=== PATIENT | female | born 1975 ===

== ENCOUNTER 2019-01-01 11:00 | Outpatient (CLI) | payer OTHER ==
[~2019-01-01] VITALS: Ht 154.9 cm; Wt 63.5 kg
[2019-01-01] MEDS ORDERED: MEDROL4 MG PO (12:28)
== END 2019-01-01 11:15 | disposition home or self-care (01) ==
LOC: OFIC 805 11:00
DX: J31.0 Chronic rhinitis (principal); J34.2 Deviated nasal septum; C73 Malignant neoplasm of thyroid gland; R49.8 Other voice and resonance disorders; J38.3 Other diseases of vocal cords; J38.00 Paralysis of vocal cords and larynx, unspecified

== ENCOUNTER 2019-01-07 10:23 | Outpatient (CLI) | payer OTHER ==
[~2019-01-07 10:23] MED LIST: MEDROL4 MG PO
== END 2019-01-07 13:33 | disposition home or self-care (01) ==
LOC: LAB 10:23
DX: E89.0 Postprocedural hypothyroidism (principal)

== ENCOUNTER 2019-01-15 09:31 | Outpatient (CLI) | payer OTHER ==
[~2019-01-15] VITALS: Ht 152.4 cm; Wt 63.5 kg
== END 2019-01-15 09:45 | disposition home or self-care (01) ==
LOC: OFIC 805 09:31
DX: J31.0 Chronic rhinitis (principal); J34.2 Deviated nasal septum; C73 Malignant neoplasm of thyroid gland; R49.8 Other voice and resonance disorders; J38.00 Paralysis of vocal cords and larynx, unspecified; G83.89 Other specified paralytic syndromes

== ENCOUNTER 2019-01-29 13:33 | Outpatient (CLI) | payer OTHER | END 2019-01-29 13:41 | disposition home or self-care (01) | LOC: LAB 13:33 | DX: J44.1 Chronic obstructive pulmonary disease with (acute) exacerbation (principal); J38.00 Paralysis of vocal cords and larynx, unspecified ==

== ENCOUNTER → 2019-02-04 09:15 | Outpatient (CLI) | payer OTHER | END | disposition home or self-care (01) | LOC: LAB 09:15 | DX: C73 Malignant neoplasm of thyroid gland (principal); Z32.00 Encounter for pregnancy test, result unknown ==

== ENCOUNTER 2019-02-12 09:57 | Outpatient (CLI) | payer OTHER ==
[~2019-02-12] VITALS: Ht 152.4 cm; Wt 63.5 kg
== END 2019-02-12 16:02 | disposition home or self-care (01) ==
LOC: OFIC 805 09:57
DX: J31.0 Chronic rhinitis (principal); J34.2 Deviated nasal septum; C73 Malignant neoplasm of thyroid gland; R49.9 Unspecified voice and resonance disorder; J38.3 Other diseases of vocal cords; J38.00 Paralysis of vocal cords and larynx, unspecified

== ENCOUNTER → 2019-05-14 | Outpatient (CLI) | payer OTHER ==
[~2019-05-14] VITALS: Ht 152.4 cm; Wt 62.6 kg
[~2019-05-14] MED LIST changes: +FLONASE16 GM NASAL; +ZYRTEC10 MG PO
== END | disposition home or self-care (01) ==
LOC: OFIC 805 07:04
DX: J31.0 Chronic rhinitis (principal); J34.2 Deviated nasal septum; C73 Malignant neoplasm of thyroid gland; R49.1 Aphonia; J38.02 Paralysis of vocal cords and larynx, bilateral

== ENCOUNTER 2019-06-13 02:23 | Emergency (ER) | payer OTHER ==
[~2019-06-13] VITALS: Ht 154.9 cm; Wt 59.4 kg
[2019-06-13] MEDS ORDERED: ROCALTROL0.25 MCG (02:37)
[2019-06-13] MEDS ORDERED: SYNTHROID112 MCG (02:38)
== END 2019-06-13 12:11 | disposition home or self-care (01) ==
LOC: ER 02:23
DX: M62.838 Other muscle spasm (principal); M54.2 Cervicalgia

== ENCOUNTER 2019-09-22 15:21 | Emergency (ER) | payer OTHER ==
[~2019-09-22] VITALS: Ht 154.9 cm; Wt 55.3 kg
[~2019-09-22 15:21] MED LIST changes: +ROCALTROL0.25 MCG; +SYNTHROID112 MCG
[2019-09-22] MEDS ORDERED: SYNTHROID75 MCG PO (15:25)
[2019-09-22] MEDS ORDERED: PROSAC PO (15:27)
== END 2019-09-22 17:13 | disposition home or self-care (01) ==
LOC: ER 15:21
DX: R00.2 Palpitations (principal); R06.02 Shortness of breath; F41.8 Other specified anxiety disorders